=== PATIENT | male | born 1985 | race Caucasian/White ===

== ENCOUNTER 2019-10-21 19:27 | Emergency (ER) | payer BC ==
[~2019-10-21] VITALS: Ht 180.3 cm; Wt 93.0 kg
[2019-10-21 19:43] VITALS: BP 149/90
--- NOTE | 2019-10-21 19:43 | NUR ---
TO LOBBY A/W BED AMBULATORY
--- NOTE | 2019-10-21 20:36 | NUR ---
PT TAKEN TO CT
--- NOTE | 2019-10-21 20:38 | NUR ---
PT AT CT
--- NOTE | 2019-10-21 20:54 | NUR ---
34 YO MALE CO FACIAL NUMBNESS FOR 2D. RIGHT SIDE OF FACE NUMB AND DOES NOT RESPOND THE SAME LEFT. EYE DOES NOT BLINK AT THE SAME TIME AND PUPIL IS SLOWER TO REACT. SMILE IS UNEVEN WITH THE RIGHT SIDE NOT EQUAL TO LEFT. ARM AND HAND STRENGTH NORMAL. LEG STRENGTH NORMAL. PT STATES NO PAIN OR NUMBNESS IN LEGS OR ARMS. NO PAST MD HX. PT LAYING IN BED WITH ONE SIDE RAIL UP.
[2019-10-21] MEDS ORDERED: ACYCLOVIR 200 MG CAP PO ONE (21:15)
[2019-10-21] MEDS ORDERED: methylPREDNISolone SS 125 MG in WATER STERILE 2 ML IM ONE (21:15)
[2019-10-21] MEDS ORDERED: WATER STERILE 0 ML MC ONE (21:18)
[2019-10-21] MEDS ORDERED: methylPREDNISolone SS 125 MG/2 ML VIAL ONE (21:19)
[2019-10-21 21:42] VITALS: BP 149/90
--- NOTE | 2019-10-21 21:43 | NUR ---
Patient discharged with v/s stable. Written and verbal after care instructions given and explained. Patient alert, oriented and verbalized understanding of instructions. Ambulatory with steady gait. All questions addressed prior to discharge. ID band removed. Patient advised to follow up with PMD. Rx of PREDNISONE, ACICLIVR AND ARTIFICIAL TEARS given. Patient educated on indication of medication including possible reaction and side effects. Opportunity to ask questions provided and answered.
== END 2019-10-21 21:43 | disposition home or self-care (01) ==
LOC: MED 19:27
DX: G51.0 Bell's palsy (principal)
CPT/HCPCS: 70450; 96372; 99284; J2930